=== PATIENT | female | born 1990 | race Caucasian/White ===

== ENCOUNTER 2017-04-28 10:13 | Emergency (ER) | payer OTHER ==
[2017-04-28] MEDS ORDERED: KETOROLAC TROMETHAMINE 60 MG/2 ML VIAL IM ONE (10:35)
[2017-04-28] MEDS ORDERED: ONDANSETRON HCL/PF 4 MG/ 2ML VIAL IVP ONE (10:35)
[2017-04-28] MEDS ORDERED: 0.9 % SODIUM CHLORIDE 1,000 ML IV ONE (10:35)
[2017-04-28] MEDS ORDERED: DEXAMETHASONE SOD PHOS 4 MG/ML VIAL IVP ONE (10:36)
[2017-04-28] MEDS ORDERED: KETOROLAC TROMETHAMINE 30 MG/1ML VIAL ONE (10:40)
[2017-04-28] MEDS ORDERED: KETOROLAC TROMETHAMINE 30 MG/1ML VIAL IVP ONE (10:56)
--- NOTE | 2017-04-28 10:58 | ED Physician Documentation ---
General Adult - HISTORIAN Historian: patient - HPI Stated Complaint: migraine Chief Complaint: General Adult Onset: days ago (2) Timing: still present Severity: moderate Further Comments: yes (Pt is a 26 yo female with a migraine headache that she has been having off & on for more than a week. Today's headache has been going on for 2 days. Pt has had photophobia, n/v. 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 ) - ROS CONST: no problems EYES/ENT: none CVS/RESP: none GI/: nausea MS/SKIN/LYMPH: none NEURO/PSYCH: headache - PAST HX Past History: other (migraine, depression) Allergies/Adverse Reactions: Allergies Allergy/AdvReac Type Severity Reaction Status Date / Time haloperidol [From Haldol] AdvReac Severe Tremors Verified 04/28/17 10:38 haloperidol lactate AdvReac Severe Tremors Verified 04/28/17 10:38 [From Haldol] diphenhydramine HCl AdvReac Tremors Verified 04/28/17 10:38 [From Benadryl] Home Medications: Ambulatory Orders Medication Instructions Recorded SUMAtriptan SUCCINATE [Imitrex] 6 mg SQ PRN PRN 02/21/15 Dextroamphetamine/Amphetamine 15 mg 04/28/17 [Adderall Xr 15 mg Capsule] Gabapentin [Neurontin] 100 mg PO TID 04/28/17 L.acidoph & Paracasei,B.lactis 1 each PO 04/28/17 [Probiotic] Multivitamin [Zoo Chews] 1 each PO 04/28/17 Sertraline HCl [Zoloft] 100 mg PO DAILY 04/28/17 Topiramate [Topamax] 25 mg PO 04/28/17 - SOCIAL HX Smoking History: cigarettes Alcohol Use: occasionally - FAMILY HX Family History: No - VITAL SIGNS Vital Signs: Vital Signs Temp Pulse Resp BP Pulse Ox 98.0 F 85 16 114/76 98 04/28/17 10:14 04/28/17 10:14 04/28/17 10:14 04/28/17 10:14 04/28/17 10:14 - REVIEWED ASSESSMENTS Nursing Assessment Reviewed: Yes Vitals Reviewed: Yes Progress - Progress Progress: NS 1 L IVF Zofran 4 mg IV Toradol 30 mg IV Decadron 4 mg IV Nubain 5 mg IV improved. ED Results Lab/Radiology - Orders Orders: ED Orders Category Date Time Status Place IV Lock 1T Care 04/28/17 10:35 Active 0.9 % Sodium Chloride [Normal Saline] 1,000 ml Med 04/28/17 10:35 Active IV Q1H Dexamethasone Sod Phosphate [Decadron] Med 04/28/17 10:36 Discontinued 4 mg IVP NOW ONE Ketorolac Tromethamine [Toradol] Med 04/28/17 10:40 Discontinued 30 mg .ROUTE .STK-MED ONE Ketorolac Tromethamine [Toradol] Med 04/28/17 10:56 Once 30 mg IVP NOW ONE Ketorolac Tromethamine [Toradol] Med 04/28/17 10:35 Discontinued 60 mg IM NOW ONE Ondansetron HCl/Pf [Zofran 4 mg/2 ml] Med 04/28/17 10:35 Discontinued 4 mg IVP NOW ONE General Adult Physical Exam - PHYSICAL EXAM GENERAL APPEARANCE: moderate distress EENT: eye inspection normal, pharynx normal NECK: normal inspection, supple RESPIRATORY: no resp distress, chest non-tender, breath sounds normal CVS: reg rate & rhythm, heart sounds normal ABDOMEN: soft, no organomegaly, normal bowel sounds BACK: normal inspection, no CVA tenderness SKIN: warm/dry, normal color EXTREMITIES: non-tender, normal range of motion, no evidence of injury NEURO: oriented X3, motor nml, sensation nml Discharge Clincal Impression: Migraine Qualifiers: Migraine type: unspecified Status migrainosus presence: without status migrainosus Intractability: not intractable Qualified Code(s): G43.909 - Migraine, unspecified, not intractable, without status migrainosus Referrals: Primary Doctor,No [Primary Care Provider] - Condition: Stable Disposition: 01 HOME, SELF-CARE Decision to Admit: NO Decision Time: 12:08
[2017-04-28] MEDS ORDERED: NALBUPHINE HCL 10 MG/1 ML IVP ONE (11:41)
[2017-04-28 12:24] VITALS: BP 113/63
== END 2017-04-28 12:15 | disposition home or self-care (01) ==
LOC: ED 10:13
DX: G43.909 Migraine, unspecified, not intractable, without status migrainosus (principal)
CPT/HCPCS: J1100; J1885; J2300; J2405; J7030; 96361; 96374; 96375; 99283; S1016